=== PATIENT | male | born 1935 | race African-American/Black ===

== ENCOUNTER 2017-03-26 15:55 | Outpatient (CLI) | payer MEDICARE ==
--- NOTE | 2017-03-26 19:49 | RAD ---
RIGHT WRIST THREE VIEWS: 03/26/17 The carpals show no acute fracture. The carpal relations are normal. The distal radius and ulna appe ar intact. Dense arterial calcifications are present. IMPRESSION: No acute finding. POS: HOME
--- NOTE | 2017-03-26 20:30 | RAD ---
RIGHT HAND THREE VIEWS 03/26/17 No fracture was appreciated. There are extensive degenerative changes throughout the hands, particul dariel in the IP joints and in the third MCP joint. Arterial calcifications are present. IMPRESSION: Chronic changes but no acute findings. POS: HOME
== END 2017-03-26 15:56 | disposition home or self-care (01) ==
LOC: BURRAD 15:55
PROVIDERS: ATTEND Family Medicine
DX: M25.531 Pain in right wrist (principal)

== ENCOUNTER 2019-05-23 11:03 | Outpatient (CLI) | payer MEDICARE ==
--- NOTE | 2019-05-23 15:30 | ULT ---
BILATERAL RENAL ULTRASOUND: 05/23/2019 HISTORY/TECHNIQUE: Ultrasonography of the urinary tract was performed for evaluation of recurrent UTIs. Documentary imag es and worksheets were provided and reviewed. FINDINGS: Both kidneys appear normal. There is no sign of renal mass or hydronephrosis. Cortex is ample in thic kness bilaterally and normal in echogenicity. The right kidney measured 10.2 x 8 x 3.7 cm and the lef t kidney measured 10.5 x 5.4 x 5.5 cm. The urinary bladder contains a mass density protruding into it inferiorly that measures 3.3 x 3.7 x 3 .6 cm. It is difficult to tell if this is an actual mass in the bladder or a prostate gland that is s lightly enlarged and irregular and protrudes into the base of the bladder. The latter is favored, but being quite prominent in its appearance, urology referral is recommended. The patient was unable to void a meaningful amount of urine during the exam. The bladder wall was abo ut 0.5 cm thick but uniformly so around its savage, suggesting the possibility of chronic outlet obstr uction. Cystitis would be less likely. IMPRESSION: 1. Normal appearing kidneys. 2. Mass density seen at the bladder outlet. Enlarged prostate protruding into the bottom of the bladd er versus an actual bladder mass. Urological referral required. DISCUSSED WITH DR PARMAR 05/23/2019. POS: HOME
== END 2019-05-23 11:04 | disposition home or self-care (01) ==
LOC: BURULT 11:03
PROVIDERS: ATTEND Family Medicine
DX: N39.0 Urinary tract infection, site not specified (principal); N32.89 Other specified disorders of bladder; Z87.440 Personal history of urinary (tract) infections
CPT/HCPCS: 76770

== ENCOUNTER 2019-12-28 16:05 | Emergency (ER) | payer MEDICARE, OTHER ==
[2019-12-28 17:36] LABS: Hemoglobin 11.5 g/dL (14.0-18.0); Mean Corpuscular Hemoglobin 29.3 pg (27.0-31.0); Mean Corpuscular Volume 94.5 fL (78.0-98.0); Mean Platelet Volume 8.6 fL (7.4-10.4); Platelet Count 162 thou/uL (130-400); Red Blood Cell (RBC) Count 3.93 mill/uL (4.70-6.10)
[2019-12-28 17:49] LABS: ALT (SGPT) 30 U/L (8-55); AST (SGOT) 37 U/L (5-34); Albumin 3.7 g/dL (3.4-4.8); Alkaline Phosphatase 83 U/L (40-110); Anion Gap 13 mmol/L (10-20); BUN (Urea Nitrogen) 16 mg/dL (8.4-25.7); Bilirubin, Total 0.4 mg/dL (0.2-1.2); Calc. Creatinine Clearance 0 mL/min (70-130); Calcium 8.5 mg/dL (7.8-10.44); Carbon Dioxide 23 mmol/L (23-31); Chloride 105 mmol/L (98-107); Estimated GFR-MDRD 57; Globulin 3.6 g/dL (2.4-3.5); Glucose 78 mg/dL (83-110); Potassium 3.7 mmol/L (3.5-5.1); Protein, Total 7.3 g/dL (5.8-8.1); Sodium 137 mmol/L (136-145)
[2019-12-28] MEDS ORDERED: Aspirin Chewable 81 MG TAB ONE (18:00)
[2019-12-28 18:01] LABS: Band 19 % (5-11); Lymphocytes 28 % (21-51); MDiff Complete? YES; Monocytes 10 % (0-10); Neutrophil 42 % (42-75); Reactive Lymphocytes 1 % (0-10)
[2019-12-28 18:08] LABS: CKMB 0.9 ng/mL (0-6.6)
--- NOTE | 2019-12-28 18:57 | RAD ---
PORTABLE CHEST: 12/28/19 An AP portable film at 1708 is compared with an 02/08/10 study. The heart is normal in size. No lobar infiltrate to suggest pneumonia was seen. There is calcificatio n in the aortic arch as before. IMPRESSION: No acute thoracic finding. POS: HOME
[2019-12-29 14:43] LABS: SARS-CoV-2 MS2 Positive; SARS-CoV-2 N Gene Positive; SARS-CoV-2 S Gene Positive; SARS-CoV-2 orf1ab Positive
== END 2019-12-28 18:31 | disposition short-term general hospital (02) ==
LOC: BURERS 16:05
DX: U07.1 COVID-19 (principal); R41.82 Altered mental status, unspecified; R07.89 Other chest pain; R53.1 Weakness; K21.9 Gastro-esophageal reflux disease without esophagitis; N40.0 Benign prostatic hyperplasia without lower urinary tract symptoms; D50.9 Iron deficiency anemia, unspecified; E78.5 Hyperlipidemia, unspecified; I12.9 Hypertensive chronic kidney disease with stage 1 through stage 4 chronic kidney disease, or unspecified chronic kidney disease; E11.22 Type 2 diabetes mellitus with diabetic chronic kidney disease; N18.9 Chronic kidney disease, unspecified; Z86.73 Personal history of transient ischemic attack (TIA), and cerebral infarction without residual deficits
CPT/HCPCS: 71045; 80053; 82553; 83880; 84484; 85025; 87635; 93005; U0003

== ENCOUNTER 2020-05-17 08:18 | Emergency (ER) | payer MEDICARE ==
[2020-05-17 08:42] LABS: #Basophils 0.1 thou/uL (0.0-0.2); #Eosinphils 0.2 thou/uL (0.0-0.7); #Lymphocytes 2.8 thou/uL (1.20-3.40); #Monocytes 0.6 thou/uL (0.11-0.59); %Basophils 0.7 % (0.0-1.0); %Eosinophils 2.8 % (0.0-10.0); %Lymphocytes 36.2 % (21.0-51.0); %Monocytes 8.2 % (0.0-10.0); %Neutrophils 52.1 % (42.0-75.0); Mean Corpuscular HGB CONC 32.1 g/dL (32.0-36.0); Mean Corpuscular Hemoglobin 29.7 pg (27.0-31.0); Mean Corpuscular Volume 92.5 fL (78.0-98.0); Mean Platelet Volume 11.8 fL (7.4-10.4); Platelet Count 177 thou/uL (130-400); RBC Distribution Width 13.8 % (11.5-14.5); Red Blood Cell (RBC) Count 4.39 mill/uL (4.70-6.10); White Blood Cell (WBC) Count 7.6 thou/uL (4.8-10.8)
[2020-05-17] MEDS ORDERED: Ondansetron PF 4 MG/2 ML Vial ONE (08:47)
[2020-05-17] MEDS ORDERED: Nitroglycerin 0.4 MG TAB 1 EACH ONE (08:51)
[2020-05-17 09:01] LABS: ALT (SGPT) 30 U/L (8-55); AST (SGOT) 20 U/L (5-34); Albumin 3.9 g/dL (3.4-4.8); Alkaline Phosphatase 117 U/L (40-110); Anion Gap 14 mmol/L (10-20); BUN (Urea Nitrogen) 18 mg/dL (8.4-25.7); Bilirubin, Total 0.3 mg/dL (0.2-1.2); Calc. Creatinine Clearance 0 mL/min (70-130); Calcium 9.2 mg/dL (7.8-10.44); Carbon Dioxide 23 mmol/L (23-31); Chloride 106 mmol/L (98-107); Glucose 226 mg/dL (83-110); Lipase 34 U/L (8-78); Potassium 4.2 mmol/L (3.5-5.1); Protein, Total 7.9 g/dL (5.8-8.1); Sodium 139 mmol/L (136-145)
[2020-05-17 09:18] LABS: CKMB 2.5 ng/mL (0-6.6)
[2020-05-17] MEDS ORDERED: Aspirin Chewable 81 MG TAB ONE (16:20)
[2020-05-17] MEDS ORDERED: Nitroglycerin 0.4 MG TAB (25 Tab Bottle) ONE (16:20)
--- NOTE | 2020-05-17 16:21 | RAD ---
PORTABLE CHEST: Date: 05/17/2020 An AP portable film at 0844 hours is compared with the 12/28/2019 study. The heart is normal in size. Calcification is seen in the aortic arch as usual. There is no pulmonary edema or pleural effusion. No definite focal pulmonary infiltrate was seen. IMPRESSION: Arteriosclerosis, but no acute finding. POS: HOME
== END 2020-05-17 09:04 | disposition short-term general hospital (02) ==
LOC: BURERS 08:18
DX: I21.9 Acute myocardial infarction, unspecified (principal); E11.9 Type 2 diabetes mellitus without complications; K21.9 Gastro-esophageal reflux disease without esophagitis; N40.0 Benign prostatic hyperplasia without lower urinary tract symptoms; E78.5 Hyperlipidemia, unspecified; I10 Essential (primary) hypertension; Z86.73 Personal history of transient ischemic attack (TIA), and cerebral infarction without residual deficits; Z87.891 Personal history of nicotine dependence
CPT/HCPCS: 71045; 80053; 82553; 83690; 83880; 84484; 85025; 93005; 96365; 96374; 96375; J1644; J2405

== ENCOUNTER 2020-05-31 16:50 | Inpatient (IN) | payer MEDICARE ==
[2020-05-31] MEDS ORDERED: Dextrose 50% Abboject 50 ML SYRINGE SLOW IVP PRN (22:41)
[2020-05-31] MEDS ORDERED: Dextrose 5% in Water 1,000 ML IV PRN (22:41)
[2020-05-31] MEDS ORDERED: Amiodarone 200 MG TAB PO SCH (23:15)
[2020-05-31] MEDS: HYDROcodone/Acetaminophen 5/325 mg Tablet PO PRN (23:22)
[2020-06-01] MEDS: Amiodarone 200 MG TAB PO SCH ×2 (09:45→20:33)
[2020-06-01] MEDS: Cefdinir 300 MG CAP PO SCH ×2 (09:45→20:32)
[2020-06-01] MEDS: Gabapentin 300 MG CAP PO SCH ×2 (09:46→20:33)
[2020-06-01] MEDS: Polyethylene Glycol 3350 17 GM Packet PO SCH (09:46)
[2020-06-01] MEDS: Atorvastatin Calcium 40 MG TAB PO SCH (09:46)
[2020-06-01] MEDS: Apixaban 2.5 MG TAB PO SCH ×2 (09:48→20:32)
[2020-06-01] MEDS: Aspirin 81 mg Enteric Coated Tablet PO SCH (09:48)
[2020-06-01] MEDS: Docusate 100 MG CAP PO SCH ×2 (09:48→20:35)
[2020-06-01] MEDS: Glimepiride 2 MG TAB PO SCH (09:48)
[2020-06-01] MEDS: Finasteride 5 MG TAB PO SCH (09:48)
[2020-06-01] MEDS: HYDROcodone/Acetaminophen 5/325 mg Tablet PO PRN ×2 (09:53→20:39)
[2020-06-01] MEDS: HumaLOG 300 UNITS/3 ML VIAL SC PRN ×3 (14:08→20:40)
[2020-06-01] MEDS: Tamsulosin HCl 0.4 MG CAP PO SCH (20:32)
[2020-06-02] MEDS: Aspirin 81 mg Enteric Coated Tablet PO SCH (08:43)
[2020-06-02] MEDS: Gabapentin 300 MG CAP PO SCH ×2 (08:44→20:28)
[2020-06-02] MEDS: Apixaban 2.5 MG TAB PO SCH ×2 (08:45→20:29)
[2020-06-02] MEDS: Atorvastatin Calcium 40 MG TAB PO SCH (08:45)
[2020-06-02] MEDS: Amiodarone 200 MG TAB PO SCH ×2 (08:45→20:29)
[2020-06-02] MEDS: Polyethylene Glycol 3350 17 GM Packet PO SCH (08:45)
[2020-06-02] MEDS: Finasteride 5 MG TAB PO SCH (08:45)
[2020-06-02] MEDS: Docusate 100 MG CAP PO SCH ×2 (08:46→20:28)
[2020-06-02] MEDS: Glimepiride 2 MG TAB PO SCH (08:46)
[2020-06-02] MEDS: Cefdinir 300 MG CAP PO SCH ×2 (08:46→20:29)
[2020-06-02] MEDS ORDERED: Milk Of Magnesia 30 ML UDCUP PO PRN (10:48)
[2020-06-02] MEDS: HumaLOG 300 UNITS/3 ML VIAL SC PRN ×2 (12:10→17:15)
[2020-06-02] MEDS: HYDROcodone/Acetaminophen 5/325 mg Tablet PO PRN (17:15)
[2020-06-02] MEDS: Tamsulosin HCl 0.4 MG CAP PO SCH (20:29)
[2020-06-03] MEDS: Gabapentin 300 MG CAP PO SCH ×2 (08:19→21:22)
[2020-06-03] MEDS: Docusate 100 MG CAP PO SCH ×2 (08:20→21:21)
[2020-06-03] MEDS: Cefdinir 300 MG CAP PO SCH ×2 (08:20→21:23)
[2020-06-03] MEDS: Finasteride 5 MG TAB PO SCH (08:20)
[2020-06-03] MEDS: Atorvastatin Calcium 40 MG TAB PO SCH (08:20)
[2020-06-03] MEDS: Aspirin 81 mg Enteric Coated Tablet PO SCH (08:20)
[2020-06-03] MEDS: Apixaban 2.5 MG TAB PO SCH ×2 (08:20→21:21)
[2020-06-03] MEDS: Glimepiride 2 MG TAB PO SCH (08:21)
[2020-06-03] MEDS: Amiodarone 200 MG TAB PO SCH ×2 (08:21→21:23)
[2020-06-03] MEDS: Polyethylene Glycol 3350 17 GM Packet PO SCH (08:21)
[2020-06-03] MEDS: HumaLOG 300 UNITS/3 ML VIAL SC PRN ×2 (12:16→17:40)
[2020-06-03 15:17] VITALS: BMI 23.8
[2020-06-03] MEDS ORDERED: Lidocaine 2% Jelly 5 ML TUBE TOP PRN (18:45)
[2020-06-03] MEDS: Tamsulosin HCl 0.4 MG CAP PO SCH (21:22)
[2020-06-04] MEDS: Cefdinir 300 MG CAP PO SCH ×2 (09:01→20:34)
[2020-06-04] MEDS: Atorvastatin Calcium 40 MG TAB PO SCH (09:01)
[2020-06-04] MEDS: Polyethylene Glycol 3350 17 GM Packet PO SCH (09:02)
[2020-06-04] MEDS: Gabapentin 300 MG CAP PO SCH ×2 (09:02→20:33)
[2020-06-04] MEDS: Glimepiride 2 MG TAB PO SCH (09:03)
[2020-06-04] MEDS: Apixaban 2.5 MG TAB PO SCH ×2 (09:03→20:34)
[2020-06-04] MEDS: Finasteride 5 MG TAB PO SCH (09:03)
[2020-06-04] MEDS: Amiodarone 200 MG TAB PO SCH ×2 (09:03→20:34)
[2020-06-04] MEDS: Aspirin 81 mg Enteric Coated Tablet PO SCH (09:03)
[2020-06-04] MEDS: Docusate 100 MG CAP PO SCH ×2 (09:03→20:34)
[2020-06-04] MEDS: Lidocaine 2% 6 ML SYR TOP PRN (12:37)
[2020-06-04] MEDS: HumaLOG 300 UNITS/3 ML VIAL SC PRN (12:37)
[2020-06-04] MEDS: Nystatin 500,000 UNITS/5 ML UDCUP SSW SCH ×3 (13:35→20:33)
[2020-06-04] MEDS: Tamsulosin HCl 0.4 MG CAP PO SCH (20:34)
[2020-06-05 05:13] LABS: Hemoglobin 9.3 g/dL (14.0-18.0); Platelet Count 256 thou/uL (130-400)
[2020-06-05] MEDS: Nystatin 500,000 UNITS/5 ML UDCUP SSW SCH ×4 (08:33→21:01)
[2020-06-05] MEDS: Polyethylene Glycol 3350 17 GM Packet PO SCH (08:33)
[2020-06-05] MEDS: Cefdinir 300 MG CAP PO SCH ×2 (08:34→21:00)
[2020-06-05] MEDS: Gabapentin 300 MG CAP PO SCH ×2 (08:34→20:59)
[2020-06-05] MEDS: Apixaban 2.5 MG TAB PO SCH ×2 (08:34→21:00)
[2020-06-05] MEDS: Aspirin 81 mg Enteric Coated Tablet PO SCH (08:35)
[2020-06-05] MEDS: Amiodarone 200 MG TAB PO SCH ×2 (08:35→21:01)
[2020-06-05] MEDS: Docusate 100 MG CAP PO SCH ×2 (08:36→21:01)
[2020-06-05] MEDS: Atorvastatin Calcium 40 MG TAB PO SCH (08:36)
[2020-06-05] MEDS: Finasteride 5 MG TAB PO SCH (08:36)
[2020-06-05] MEDS: Glimepiride 2 MG TAB PO SCH (08:37)
[2020-06-05] MEDS: HumaLOG 300 UNITS/3 ML VIAL SC PRN ×3 (12:18→21:20)
[2020-06-05] MEDS: Tamsulosin HCl 0.4 MG CAP PO SCH (21:00)
[2020-06-06] MEDS: Polyethylene Glycol 3350 17 GM Packet PO SCH (08:23)
[2020-06-06] MEDS: Finasteride 5 MG TAB PO SCH (08:23)
[2020-06-06] MEDS: Nystatin 500,000 UNITS/5 ML UDCUP SSW SCH ×4 (08:23→21:11)
[2020-06-06] MEDS: Gabapentin 300 MG CAP PO SCH ×2 (08:23→21:11)
[2020-06-06] MEDS: Docusate 100 MG CAP PO SCH ×2 (08:25→21:10)
[2020-06-06] MEDS: Cefdinir 300 MG CAP PO SCH ×2 (08:25→21:10)
[2020-06-06] MEDS: Aspirin 81 mg Enteric Coated Tablet PO SCH (08:26)
[2020-06-06] MEDS: Glimepiride 2 MG TAB PO SCH (08:26)
[2020-06-06] MEDS: Amiodarone 200 MG TAB PO SCH ×2 (08:26→21:11)
[2020-06-06] MEDS: Apixaban 2.5 MG TAB PO SCH ×2 (08:26→21:13)
[2020-06-06] MEDS: Atorvastatin Calcium 40 MG TAB PO SCH (08:26)
[2020-06-06] MEDS: HYDROcodone/Acetaminophen 5/325 mg Tablet PO PRN (08:34)
[2020-06-06] MEDS: HumaLOG 300 UNITS/3 ML VIAL SC PRN ×2 (12:35→21:24)
[2020-06-06] MEDS: Acetaminophen 325 MG TAB PO SCH (21:12)
[2020-06-06] MEDS: Tamsulosin HCl 0.4 MG CAP PO SCH (21:13)
[2020-06-06] MEDS: diphenhydrAMINE 25 MG CAP PO SCH (21:13)
[2020-06-07] MEDS: Polyethylene Glycol 3350 17 GM Packet PO SCH (08:25)
[2020-06-07] MEDS: Aspirin 81 mg Enteric Coated Tablet PO SCH (08:25)
[2020-06-07] MEDS: Nystatin 500,000 UNITS/5 ML UDCUP SSW SCH ×4 (08:25→20:34)
[2020-06-07] MEDS: Amiodarone 200 MG TAB PO SCH ×2 (08:25→20:33)
[2020-06-07] MEDS: Cefdinir 300 MG CAP PO SCH ×2 (08:25→20:32)
[2020-06-07] MEDS: Finasteride 5 MG TAB PO SCH (08:26)
[2020-06-07] MEDS: Docusate 100 MG CAP PO SCH ×2 (08:26→20:33)
[2020-06-07] MEDS: Atorvastatin Calcium 40 MG TAB PO SCH (08:26)
[2020-06-07] MEDS: Apixaban 2.5 MG TAB PO SCH ×2 (08:26→20:33)
[2020-06-07] MEDS: Glimepiride 2 MG TAB PO SCH (08:26)
[2020-06-07] MEDS: Gabapentin 300 MG CAP PO SCH ×2 (08:27→20:32)
[2020-06-07] MEDS: HumaLOG 300 UNITS/3 ML VIAL SC PRN ×2 (12:52→16:53)
[2020-06-07] MEDS: diphenhydrAMINE 25 MG CAP PO SCH (20:33)
[2020-06-07] MEDS: Acetaminophen 325 MG TAB PO SCH (20:33)
[2020-06-07] MEDS: Tamsulosin HCl 0.4 MG CAP PO SCH (20:33)
[2020-06-08] MEDS: HYDROcodone/Acetaminophen 5/325 mg Tablet PO PRN (05:16)
[2020-06-08] MEDS: Atorvastatin Calcium 40 MG TAB PO SCH (08:27)
[2020-06-08] MEDS: Gabapentin 300 MG CAP PO SCH ×2 (08:27→20:12)
[2020-06-08] MEDS: Docusate 100 MG CAP PO SCH (08:28)
[2020-06-08] MEDS: Glimepiride 2 MG TAB PO SCH (08:28)
[2020-06-08] MEDS: Amiodarone 200 MG TAB PO SCH ×2 (08:28→20:12)
[2020-06-08] MEDS: Aspirin 81 mg Enteric Coated Tablet PO SCH (08:28)
[2020-06-08] MEDS: Apixaban 2.5 MG TAB PO SCH ×2 (08:28→20:15)
[2020-06-08] MEDS: Cefdinir 300 MG CAP PO SCH ×2 (08:28→20:11)
[2020-06-08] MEDS: Polyethylene Glycol 3350 17 GM Packet PO SCH (08:28)
[2020-06-08] MEDS: Nystatin 500,000 UNITS/5 ML UDCUP SSW SCH ×4 (08:28→21:00)
[2020-06-08] MEDS: Finasteride 5 MG TAB PO SCH (08:30)
[2020-06-08] MEDS: Acetaminophen 325 MG TAB PO SCH (20:13)
[2020-06-08] MEDS: diphenhydrAMINE 25 MG CAP PO SCH (20:15)
[2020-06-08] MEDS: Tamsulosin HCl 0.4 MG CAP PO SCH (20:15)
[2020-06-09] MEDS: Gabapentin 300 MG CAP PO SCH ×2 (08:06→21:13)
[2020-06-09] MEDS: Amiodarone 200 MG TAB PO SCH ×2 (08:06→21:13)
[2020-06-09] MEDS: Glimepiride 2 MG TAB PO SCH (08:07)
[2020-06-09] MEDS: Atorvastatin Calcium 40 MG TAB PO SCH (08:07)
[2020-06-09] MEDS: Apixaban 2.5 MG TAB PO SCH ×2 (08:07→21:14)
[2020-06-09] MEDS: Finasteride 5 MG TAB PO SCH (08:07)
[2020-06-09] MEDS: Aspirin 81 mg Enteric Coated Tablet PO SCH (08:08)
[2020-06-09] MEDS: Polyethylene Glycol 3350 17 GM Packet PO SCH (08:08)
[2020-06-09] MEDS: Nystatin 500,000 UNITS/5 ML UDCUP SSW SCH ×4 (08:08→21:12)
[2020-06-09] MEDS: Cefdinir 300 MG CAP PO SCH ×2 (08:08→21:13)
[2020-06-09] MEDS: HumaLOG 300 UNITS/3 ML VIAL SC PRN ×2 (11:44→16:56)
[2020-06-09] MEDS: diphenhydrAMINE 25 MG CAP PO SCH (21:12)
[2020-06-09] MEDS: Tamsulosin HCl 0.4 MG CAP PO SCH (21:13)
[2020-06-09] MEDS: Acetaminophen 325 MG TAB PO SCH (21:14)
[2020-06-09] MEDS: HYDROcodone/Acetaminophen 5/325 mg Tablet PO PRN (23:09)
[2020-06-10 04:54] LABS: Hemoglobin 9.7 g/dL (14.0-18.0); Platelet Count 225 thou/uL (130-400)
[2020-06-10] MEDS: Nystatin 500,000 UNITS/5 ML UDCUP SSW SCH ×4 (09:20→20:13)
[2020-06-10] MEDS: Atorvastatin Calcium 40 MG TAB PO SCH (09:21)
[2020-06-10] MEDS: Apixaban 2.5 MG TAB PO SCH ×2 (09:21→20:13)
[2020-06-10] MEDS: Cefdinir 300 MG CAP PO SCH ×2 (09:21→20:13)
[2020-06-10] MEDS: Amiodarone 200 MG TAB PO SCH ×2 (09:21→20:13)
[2020-06-10] MEDS: Glimepiride 2 MG TAB PO SCH (09:21)
[2020-06-10] MEDS: Gabapentin 300 MG CAP PO SCH ×2 (09:21→20:12)
[2020-06-10] MEDS: Aspirin 81 mg Enteric Coated Tablet PO SCH (09:21)
[2020-06-10] MEDS: Finasteride 5 MG TAB PO SCH (09:22)
[2020-06-10] MEDS: Polyethylene Glycol 3350 17 GM Packet PO SCH (09:23)
[2020-06-10] MEDS: HumaLOG 300 UNITS/3 ML VIAL SC PRN ×2 (12:33→17:23)
[2020-06-10] MEDS: Tamsulosin HCl 0.4 MG CAP PO SCH (20:13)
[2020-06-10] MEDS: diphenhydrAMINE 25 MG CAP PO SCH (20:13)
[2020-06-10] MEDS: Acetaminophen 325 MG TAB PO SCH (20:14)
[2020-06-11] MEDS: HYDROcodone/Acetaminophen 5/325 mg Tablet PO PRN (06:07)
[2020-06-11] MEDS: Glimepiride 2 MG TAB PO SCH (08:11)
[2020-06-11] MEDS: Cefdinir 300 MG CAP PO SCH (08:11)
[2020-06-11] MEDS: Apixaban 2.5 MG TAB PO SCH ×2 (08:11→20:37)
[2020-06-11] MEDS: Aspirin 81 mg Enteric Coated Tablet PO SCH (08:11)
[2020-06-11] MEDS: Amiodarone 200 MG TAB PO SCH ×2 (08:11→20:35)
[2020-06-11] MEDS: Finasteride 5 MG TAB PO SCH (08:12)
[2020-06-11] MEDS: Gabapentin 300 MG CAP PO SCH ×2 (08:12→20:36)
[2020-06-11] MEDS: Nystatin 500,000 UNITS/5 ML UDCUP SSW SCH ×4 (08:12→20:35)
[2020-06-11] MEDS: Atorvastatin Calcium 40 MG TAB PO SCH (08:12)
[2020-06-11] MEDS: Polyethylene Glycol 3350 17 GM Packet PO SCH (08:18)
[2020-06-11] MEDS: Lidocaine 2% 6 ML SYR TOP PRN (08:55)
[2020-06-11] MEDS: HumaLOG 300 UNITS/3 ML VIAL SC PRN ×2 (12:14→18:03)
[2020-06-11] MEDS: Acetaminophen 325 MG TAB PO SCH (20:35)
[2020-06-11] MEDS: diphenhydrAMINE 25 MG CAP PO SCH (20:36)
[2020-06-11] MEDS: Tamsulosin HCl 0.4 MG CAP PO SCH (20:37)
[2020-06-12] MEDS: Nystatin 500,000 UNITS/5 ML UDCUP SSW SCH ×4 (07:51→20:42)
[2020-06-12] MEDS: Polyethylene Glycol 3350 17 GM Packet PO SCH (07:52)
[2020-06-12] MEDS: Gabapentin 300 MG CAP PO SCH ×2 (07:52→20:42)
[2020-06-12] MEDS: Aspirin 81 mg Enteric Coated Tablet PO SCH (07:57)
[2020-06-12] MEDS: Finasteride 5 MG TAB PO SCH (07:57)
[2020-06-12] MEDS: Amiodarone 200 MG TAB PO SCH ×2 (07:57→20:44)
[2020-06-12] MEDS: Atorvastatin Calcium 40 MG TAB PO SCH (07:57)
[2020-06-12] MEDS: Glimepiride 2 MG TAB PO SCH (07:58)
[2020-06-12] MEDS: Apixaban 2.5 MG TAB PO SCH ×2 (07:58→20:44)
[2020-06-12] MEDS: HumaLOG 300 UNITS/3 ML VIAL SC PRN (17:32)
[2020-06-12] MEDS: diphenhydrAMINE 25 MG CAP PO SCH (20:44)
[2020-06-12] MEDS: Acetaminophen 325 MG TAB PO SCH (20:44)
[2020-06-12] MEDS: Tamsulosin HCl 0.4 MG CAP PO SCH (20:44)
[2020-06-13] MEDS: Polyethylene Glycol 3350 17 GM Packet PO SCH (08:19)
[2020-06-13] MEDS: Nystatin 500,000 UNITS/5 ML UDCUP SSW SCH ×4 (08:20→20:35)
[2020-06-13] MEDS: Gabapentin 300 MG CAP PO SCH ×2 (08:20→20:36)
[2020-06-13] MEDS: Finasteride 5 MG TAB PO SCH (08:22)
[2020-06-13] MEDS: Atorvastatin Calcium 40 MG TAB PO SCH (08:22)
[2020-06-13] MEDS: Aspirin 81 mg Enteric Coated Tablet PO SCH (08:22)
[2020-06-13] MEDS: Amiodarone 200 MG TAB PO SCH ×2 (08:23→20:37)
[2020-06-13] MEDS: Glimepiride 2 MG TAB PO SCH (08:23)
[2020-06-13] MEDS: Apixaban 2.5 MG TAB PO SCH ×2 (08:23→20:37)
[2020-06-13] MEDS: HumaLOG 300 UNITS/3 ML VIAL SC PRN ×2 (12:29→17:07)
[2020-06-13] MEDS: HYDROcodone/Acetaminophen 5/325 mg Tablet PO PRN (19:31)
[2020-06-13] MEDS: Tamsulosin HCl 0.4 MG CAP PO SCH (20:37)
[2020-06-13] MEDS: diphenhydrAMINE 25 MG CAP PO SCH (20:37)
[2020-06-13] MEDS: Acetaminophen 325 MG TAB PO SCH (20:38)
[2020-06-14] MEDS: Glimepiride 2 MG TAB PO SCH (08:31)
[2020-06-14] MEDS: Aspirin 81 mg Enteric Coated Tablet PO SCH (08:33)
[2020-06-14] MEDS: Atorvastatin Calcium 40 MG TAB PO SCH (08:33)
[2020-06-14] MEDS: Finasteride 5 MG TAB PO SCH (08:33)
[2020-06-14] MEDS: Amiodarone 200 MG TAB PO SCH ×2 (08:33→20:20)
[2020-06-14] MEDS: Apixaban 2.5 MG TAB PO SCH ×2 (08:34→20:21)
[2020-06-14] MEDS: Gabapentin 300 MG CAP PO SCH ×2 (08:34→20:18)
[2020-06-14] MEDS: Nystatin 500,000 UNITS/5 ML UDCUP SSW SCH ×4 (08:34→20:18)
[2020-06-14] MEDS: Polyethylene Glycol 3350 17 GM Packet PO SCH (08:35)
[2020-06-14] MEDS: HumaLOG 300 UNITS/3 ML VIAL SC PRN (12:44)
[2020-06-14] MEDS: diphenhydrAMINE 25 MG CAP PO SCH (20:20)
[2020-06-14] MEDS: Acetaminophen 325 MG TAB PO SCH (20:20)
[2020-06-14] MEDS: Tamsulosin HCl 0.4 MG CAP PO SCH (20:20)
[2020-06-14] MEDS: HYDROcodone/Acetaminophen 5/325 mg Tablet PO PRN (23:16)
[2020-06-15] MEDS: Gabapentin 300 MG CAP PO SCH ×2 (08:45→21:28)
[2020-06-15] MEDS: Polyethylene Glycol 3350 17 GM Packet PO SCH (08:45)
[2020-06-15] MEDS: Aspirin 81 mg Enteric Coated Tablet PO SCH (08:47)
[2020-06-15] MEDS: Glimepiride 2 MG TAB PO SCH (08:47)
[2020-06-15] MEDS: Finasteride 5 MG TAB PO SCH (08:47)
[2020-06-15] MEDS: Amiodarone 200 MG TAB PO SCH ×2 (08:47→21:29)
[2020-06-15] MEDS: Apixaban 2.5 MG TAB PO SCH ×2 (08:47→21:30)
[2020-06-15] MEDS: Nystatin 500,000 UNITS/5 ML UDCUP SSW SCH ×4 (08:47→21:27)
[2020-06-15] MEDS: Atorvastatin Calcium 40 MG TAB PO SCH (08:48)
[2020-06-15] MEDS: HumaLOG 300 UNITS/3 ML VIAL SC PRN (17:10)
[2020-06-15] MEDS: HYDROcodone/Acetaminophen 5/325 mg Tablet PO PRN (18:55)
[2020-06-15] MEDS: Acetaminophen 325 MG TAB PO SCH (21:29)
[2020-06-15] MEDS: Tamsulosin HCl 0.4 MG CAP PO SCH (21:29)
[2020-06-15] MEDS: diphenhydrAMINE 25 MG CAP PO SCH (21:30)
[2020-06-16] MEDS: Atorvastatin Calcium 40 MG TAB PO SCH (08:53)
[2020-06-16] MEDS: Amiodarone 200 MG TAB PO SCH ×2 (08:53→21:08)
[2020-06-16] MEDS: Apixaban 2.5 MG TAB PO SCH ×2 (08:54→21:08)
[2020-06-16] MEDS: Finasteride 5 MG TAB PO SCH (08:54)
[2020-06-16] MEDS: Aspirin 81 mg Enteric Coated Tablet PO SCH (08:54)
[2020-06-16] MEDS: Gabapentin 300 MG CAP PO SCH ×2 (08:54→21:06)
[2020-06-16] MEDS: Nystatin 500,000 UNITS/5 ML UDCUP SSW SCH ×4 (08:56→21:08)
[2020-06-16] MEDS: Glimepiride 2 MG TAB PO SCH (08:56)
[2020-06-16] MEDS: Polyethylene Glycol 3350 17 GM Packet PO SCH (08:57)
[2020-06-16] MEDS: Acetaminophen 325 MG TAB PO SCH (21:07)
[2020-06-16] MEDS: diphenhydrAMINE 25 MG CAP PO SCH (21:08)
[2020-06-16] MEDS: Tamsulosin HCl 0.4 MG CAP PO SCH (21:08)
[2020-06-16] MEDS: HYDROcodone/Acetaminophen 5/325 mg Tablet PO PRN (21:13)
[2020-06-17 06:26] VITALS: BP 111/58; TEMP 98
[2020-06-17] MEDS: Polyethylene Glycol 3350 17 GM Packet PO SCH (08:47)
[2020-06-17] MEDS: Gabapentin 300 MG CAP PO SCH (08:50)
[2020-06-17] MEDS: Atorvastatin Calcium 40 MG TAB PO SCH (08:51)
[2020-06-17] MEDS: Finasteride 5 MG TAB PO SCH (08:51)
[2020-06-17] MEDS: Apixaban 2.5 MG TAB PO SCH (08:51)
[2020-06-17] MEDS: Aspirin 81 mg Enteric Coated Tablet PO SCH (08:52)
[2020-06-17] MEDS: Glimepiride 2 MG TAB PO SCH (08:52)
[2020-06-17] MEDS: Amiodarone 200 MG TAB PO SCH (08:52)
[2020-06-17] MEDS: Nystatin 500,000 UNITS/5 ML UDCUP SSW SCH ×2 (08:58→17:02)
[2020-06-17] MEDS: HumaLOG 300 UNITS/3 ML VIAL SC PRN (12:26)
[2020-06-29] MEDS ORDERED: Amiodarone 200 MG TAB PO SCH (09:00)
== END 2020-06-17 14:20 | disposition home health service (06) | DRG 947 ==
LOC: BURMED 21:02
PROVIDERS: ADMIT Family Medicine; ATTEND Family Medicine
DX: R53.81 Other malaise (principal); I21.4 Non-ST elevation (NSTEMI) myocardial infarction; Z48.812 Encounter for surgical aftercare following surgery on the circulatory system; I73.9 Peripheral vascular disease, unspecified; E78.00 Pure hypercholesterolemia, unspecified; Z89.512 Acquired absence of left leg below knee; Z89.511 Acquired absence of right leg below knee; K21.9 Gastro-esophageal reflux disease without esophagitis; N18.30 Chronic kidney disease, stage 3 unspecified; E11.22 Type 2 diabetes mellitus with diabetic chronic kidney disease; I12.9 Hypertensive chronic kidney disease with stage 1 through stage 4 chronic kidney disease, or unspecified chronic kidney disease; I25.10 Atherosclerotic heart disease of native coronary artery without angina pectoris; I48.91 Unspecified atrial fibrillation
CPT/HCPCS: 36415; 36416; 82565; 85014; 85018; 85049; Q0163

== ENCOUNTER 2020-07-05 11:19 | Emergency (ER) | payer MEDICARE ==
[2020-07-05 11:42] LABS: #Basophils 0.1 thou/uL (0.0-0.2); #Eosinphils 0.2 thou/uL (0.0-0.7); #Lymphocytes 2.4 thou/uL (1.20-3.40); #Monocytes 0.9 thou/uL (0.11-0.59); #Neutrophils 3.7 thou/uL (1.40-6.50); %Basophils 1.3 % (0.0-1.0); %Eosinophils 2.2 % (0.0-10.0); %Lymphocytes 33.6 % (21.0-51.0); %Monocytes 12.1 % (0.0-10.0); %Neutrophils 50.7 % (42.0-75.0); Hemoglobin 11.5 g/dL (14.0-18.0); Mean Corpuscular HGB CONC 31.4 g/dL (32.0-36.0); Mean Corpuscular Hemoglobin 30.1 pg (27.0-31.0); Mean Corpuscular Volume 95.9 fL (78.0-98.0); Mean Platelet Volume 9.6 fL (7.4-10.4); Platelet Count 223 thou/uL (130-400); RBC Distribution Width 15.1 % (11.5-14.5); Red Blood Cell (RBC) Count 3.84 mill/uL (4.70-6.10); White Blood Cell (WBC) Count 7.2 thou/uL (4.8-10.8)
--- NOTE | 2020-07-05 11:49 | CT ---
CT head noncontrast HISTORY: Right-sided weakness. Aphasia. COMPARISON: 01/04/2017. FINDINGS: There is no evidence of acute intracranial hemorrhage or infarct. Mild chronic ischemic sma ll vessel disease apparent within the periventricular white matter of each cerebral hemisphere. There is no mass effect or shift of midline structures. Mucosal thickening apparent within the partia lly visualized right maxillary sinus. IMPRESSION : No acute abnormalities are demonstrated. Findings were called to Dr. Swanson in the [place] emergency department at 1141 hours. Code CR.
[2020-07-05 11:56] LABS: ALT (SGPT) 12 U/L (8-55); AST (SGOT) 14 U/L (5-34); Albumin 3.6 g/dL (3.4-4.8); Alkaline Phosphatase 111 U/L (40-110); Anion Gap 12 mmol/L (10-20); BUN (Urea Nitrogen) 18 mg/dL (8.4-25.7); Bilirubin, Total 0.2 mg/dL (0.2-1.2); Calc. Creatinine Clearance 0 mL/min (70-130); Calcium 8.7 mg/dL (7.8-10.44); Carbon Dioxide 22 mmol/L (23-31); Chloride 107 mmol/L (98-107); Globulin 3.1 g/dL (2.4-3.5); Glucose 176 mg/dL (83-110); Potassium 4.5 mmol/L (3.5-5.1); Protein, Total 6.7 g/dL (5.8-8.1); Sodium 136 mmol/L (136-145)
[2020-07-05 12:14] LABS: CKMB 1.8 ng/mL (0-6.6)
[2020-07-05 12:34] LABS: Bilirubin Negative (Negative); Blood, Urine Negative (Negative); Clarity Cloudy (Clear); Glucose, Urine (Dipstick) Negative (Negative); Ketone, Urine Negative (Negative); Leukocyte Small (Negative); Nitrite Negative (Negative); Protein, Urine (Dipstick) Negative (Neg-Trace); Urobilinogen 0.2 mg/dL (Less than 2)
[2020-07-05 12:42] LABS: Bacteria/HPF 2+ HPF (None Seen); RBC/HPF 0-3 HPF (0-3); Squamous Epithelial 0-3 HPF (0-3)
[2020-07-05] MEDS ORDERED: cefTRIAXone\\ROCEPHIN 2 GM VIAL ONE (13:02)
--- NOTE | 2020-07-05 13:12 | RAD ---
PORTABLE CHEST: DATE: 07/05/2020. FINDINGS: An AP portable film at 1227 shows a normal-sized heart. There is no vascular congestion or edema. T he lungs are clear. There are no effusions. IMPRESSION: No acute finding. POS: HOME
== END 2020-07-05 13:30 | disposition left against medical advice (07) ==
LOC: BURERS 11:19
DX: G45.9 Transient cerebral ischemic attack, unspecified (principal); N39.0 Urinary tract infection, site not specified; Z79.899 Other long term (current) drug therapy; Z79.01 Long term (current) use of anticoagulants; E11.9 Type 2 diabetes mellitus without complications; E78.00 Pure hypercholesterolemia, unspecified; I10 Essential (primary) hypertension; K21.9 Gastro-esophageal reflux disease without esophagitis
CPT/HCPCS: 36415; 70450; 71045; 80053; 81003; 81015; 82553; 83605; 84484; 85025; 93005; 96374; J0696

== ENCOUNTER 2021-01-15 11:34 | Emergency (ER) | payer MEDICARE ==
[2021-01-15 11:58] LABS: #Basophils 0.1 thou/uL (0.0-0.2); #Eosinphils 0.5 thou/uL (0.0-0.7); #Lymphocytes 2.9 thou/uL (1.20-3.40); #Monocytes 0.9 thou/uL (0.11-0.59); #Neutrophils 3.2 thou/uL (1.40-6.50); %Basophils 0.9 % (0.0-1.0); %Eosinophils 6.4 % (0.0-10.0); %Lymphocytes 38.7 % (21.0-51.0); %Monocytes 11.8 % (0.0-10.0); %Neutrophils 42.1 % (42.0-75.0); Hemoglobin 12.3 g/dL (14.0-18.0); Mean Corpuscular HGB CONC 31.9 g/dL (32.0-36.0); Mean Corpuscular Hemoglobin 30.3 pg (27.0-31.0); Mean Corpuscular Volume 94.9 fL (78.0-98.0); Mean Platelet Volume 9.2 fL (7.4-10.4); Platelet Count 205 thou/uL (130-400); RBC Distribution Width 14.3 % (11.5-14.5); Red Blood Cell (RBC) Count 4.05 mill/uL (4.70-6.10); White Blood Cell (WBC) Count 7.6 thou/uL (4.8-10.8)
[2021-01-15 12:15] LABS: ALT (SGPT) 19 U/L (8-55); AST (SGOT) 18 U/L (5-34); Albumin 3.9 g/dL (3.4-4.8); Alkaline Phosphatase 125 U/L (40-110); Anion Gap 11 mmol/L (10-20); BUN (Urea Nitrogen) 20 mg/dL (8.4-25.7); Calc. Creatinine Clearance 0 mL/min (70-130); Carbon Dioxide 23 mmol/L (23-31); Chloride 108 mmol/L (98-107); Globulin 3.7 g/dL (2.4-3.5); Glucose 96 mg/dL (83-110); Potassium 4.4 mmol/L (3.5-5.1); Protein, Total 7.6 g/dL (5.8-8.1); Sodium 138 mmol/L (136-145)
[2021-01-15 12:24] LABS: Bilirubin, Total Less than 1.0 mg/dL (0.2-1.2)
[2021-01-15] MEDS ORDERED: Metoprolol Tartrate 5 MG/5 ML VIAL ONE (17:01)
[2021-01-15] MEDS ORDERED: Aspirin Chewable 81 MG TAB ONE (17:01)
[2021-01-15] MEDS ORDERED: Nitroglycerin 50 MG/250 ML BOT ONE (17:01)
[2021-01-15] MEDS ORDERED: Heparin 10,000 UNITS/ 10 ML VIAL ONE (17:01)
== END 2021-01-15 12:16 | disposition short-term general hospital (02) ==
LOC: BURERS 11:34
DX: I24.9 Acute ischemic heart disease, unspecified (principal); E78.5 Hyperlipidemia, unspecified; E11.9 Type 2 diabetes mellitus without complications; E78.00 Pure hypercholesterolemia, unspecified; I10 Essential (primary) hypertension; K21.9 Gastro-esophageal reflux disease without esophagitis; Z89.512 Acquired absence of left leg below knee; Z89.511 Acquired absence of right leg below knee
CPT/HCPCS: 71045; 80053; 84484; 85025; 93005; 96374; 96375; J1644

== ENCOUNTER 2021-02-12 11:41 | Outpatient (CLI) | payer MEDICARE | END 2021-02-12 11:42 | disposition home or self-care (01) | LOC: BURRAD 11:41 | PROVIDERS: ATTEND Family Medicine | DX: M79.605 Pain in left leg (principal); M17.12 Unilateral primary osteoarthritis, left knee; I70.202 Unspecified atherosclerosis of native arteries of extremities, left leg ==

== ENCOUNTER 2022-07-10 17:57 | Emergency (ER) | payer MEDICARE, OTHER ==
[2022-07-10] MEDS ORDERED: Morphine 4 MG/ML VIAL ONE (18:45)
[2022-07-10 18:59] LABS: #Basophils 0.1 thou/uL (0.0-0.2); #Eosinphils 0.4 thou/uL (0.0-0.7); #Lymphocytes 2.7 thou/uL (1.20-3.40); #Monocytes 0.9 thou/uL (0.11-0.59); #Neutrophils 3.3 thou/uL (1.40-6.50); %Eosinophils 4.8 % (0.0-10.0); %Lymphocytes 36.2 % (21.0-51.0); %Monocytes 12.2 % (0.0-10.0); %Neutrophils 45.7 % (42.0-75.0); Hemoglobin 11.8 g/dL (14.0-18.0); Mean Corpuscular HGB CONC 32.2 g/dL (32.0-36.0); Mean Corpuscular Hemoglobin 30.1 pg (27.0-31.0); Mean Corpuscular Volume 93.4 fl (78.0-98.0); Mean Platelet Volume 8.2 fL (7.4-10.4); Platelet Count 230 10x3/uL (130-400); RBC Distribution Width 12.9 % (11.5-14.5); Red Blood Cell (RBC) Count 3.91 mill/uL (4.70-6.10); White Blood Cell (WBC) Count 7.3 10x3/uL (4.8-10.8)
[2022-07-10 19:15] LABS: ALT (SGPT) 12 U/L (8-55); AST (SGOT) 14 U/L (5-34); Albumin 3.8 g/dL (3.4-4.8); Alkaline Phosphatase 119 U/L (40-110); Anion Gap 11 mmol/L (10-20); BUN (Urea Nitrogen) 17 mg/dL (8.4-25.7); Bilirubin, Total 0.4 mg/dL (0.2-1.2); Calc. Creatinine Clearance 0 mL/min (70-130); Calcium 8.9 mg/dL (7.8-10.44); Carbon Dioxide 23 mmol/L (23-31); Chloride 107 mmol/L (98-107); Estimated GFR 53; Globulin 3.4 g/dL (2.4-3.5); Glucose 102 mg/dL (83-110); Potassium 4.1 mmol/L (3.5-5.1); Protein, Total 7.2 g/dL (5.8-8.1); Sodium 137 mmol/L (136-145)
== END 2022-07-10 19:52 | disposition home or self-care (01) ==
LOC: BURERS 17:57
DX: M62.838 Other muscle spasm (principal); E78.00 Pure hypercholesterolemia, unspecified; E11.51 Type 2 diabetes mellitus with diabetic peripheral angiopathy without gangrene; K21.9 Gastro-esophageal reflux disease without esophagitis; I10 Essential (primary) hypertension
CPT/HCPCS: 36415; 80053; 85025; 96372; J2270

== ENCOUNTER 2022-12-28 15:59 | Emergency (ER) | payer OTHER | END 2022-12-28 16:35 | disposition home or self-care (01) | LOC: BURERS 15:59 | DX: S16.1XXA Strain of muscle, fascia and tendon at neck level, initial encounter (principal); E11.9 Type 2 diabetes mellitus without complications; I10 Essential (primary) hypertension; K21.9 Gastro-esophageal reflux disease without esophagitis; X58.XXXA Exposure to other specified factors, initial encounter | CPT/HCPCS: 99283 ==